=== PATIENT | female | born 1990 | race Caucasian/White ===

== ENCOUNTER 2021-05-29 22:36 | Inpatient (IN) | payer OTHER ==
[~2021-05-29] VITALS: Ht 160 cm; Wt 74.4 kg
[~2021-05-29 22:36] MED LIST: PRENATA CHEWAB1 EACH PO
--- NOTE | 2021-05-30 00:13 | NUR ---
COVID 19 SWAB DONE TO BOTH NARES AND SENT TO INHOUSE LAB.
--- NOTE | 2021-05-30 09:06 | PR ---
[facility] [address] [place], [place] [address] Signed PP Progress Notes Datetime Report Generated by CPN: 05/30/2021 09:06 SUBJECTIVE: [id number] Pain: Within Normal Limits Nausea/Vomiting: Denies Vital Signs: [id number] Vital Signs: Reviewed; Within Normal Limits EXAM: Ongoing Cardiovascular: Normal Respiratory: Normal Abdomen/Uterus: Normal Lochia: Normal Extremities: Normal Progress: Normal Exam Comments: NAD RRR No dyspnea/ retractions Abd SNTND, FFBU Ext: trace edema, Neg Jocelyne's BL IMPRESSION/PLAN/PROCEDURES: [id number] Impression: Normal Progression Plan: Continue Present Management Procedures: None Progress Notes: PPD#1 s/p precipitous -GBS positive, insufficient prophylaxis -Methamphetamine positive on admission UDS Progressing well . Ambulating, voiding, tolerating regular diet. Deneis concerns. Lochia light, pain well-controlled with motrin. Anticipate DC to boarder status tomorrow, baby likely staying x 48h Signing Physician: Janna Singletary DO Copies: ~ *Electronically Signed* 05/30/21 09 JANNA SINGLETARY DO PATIENT NAME: LILIANA JALLOH PROGRESS NOTE DATE OF : 86 PHYSICIAN: JANNA SINGLETARY DO RPT #: [id number] REPORT IS CONFIDENTIAL AND NOT TO BE RELEASED WITHOUT AUTHORIZATION
--- NOTE | 2021-05-31 08:41 | PR ---
[facility] [facility] [address] [place], [place] [address] Signed PP Progress Notes Datetime Report Generated by ASHISH: 05/31/2021 08:41 SUBJECTIVE: [id number] Pain: Within Normal Limits Nausea/Vomiting: Denies Flatus: Yes Vital Signs: [id number] Vital Signs: Reviewed; Within Normal Limits EXAM: Ongoing Cardiovascular: Normal Respiratory: Normal Abdomen/Uterus: Normal Lochia: Normal Breasts: Normal Extremities: Normal Progress: Normal Exam Comments: NAD, standing at bedside RRR No dyspnea/ retractions Abd SNTND, FFBU Ext: trace edema, neg Jocelyne's BL IMPRESSION/PLAN/PROCEDURES: [id number] Impression: Normal Progression Plan: Continue Present Management Procedures: None Progress Notes: PPD#2 s/p precipitous GBS+, insufficient antibiotics, baby under 48hr surveillance UDS+ for methamphetamines on admission, repeat on pt NEGATIVE and baby's urine NEGATIVE. Pt seen and examined, progressing well . VSS, ambulating, voiding, tolerating regular diet. Pain well-controlled, "not bad at all even without the ibuprofen". Planning tubal ligation vs partner vasectomy for contraception Anticipate DC to home later today *Electronically Signed* 05/31/21 0841 JANNA SINGLETARY DO PATIENT NAME: LILIANA JALLOH PROGRESS NOTE DATE OF : 88 PHYSICIAN: JANNA SINGLETARY DO RPT #: [id number] REPORT IS CONFIDENTIAL AND NOT TO BE RELEASED WITHOUT AUTHORIZATION [address] [address] Signed Signing Physician: Janna Singletary DO Copies: ~ *Electronically Signed* 05/31/21 0841 JANNA SINGLETARY DO PATIENT NAME: LILIANA JALLOH PROGRESS NOTE DATE OF : 86 PHYSICIAN: JANNA SINGLETARY DO RPT #: [id number] REPORT IS CONFIDENTIAL AND NOT TO BE RELEASED WITHOUT AUTHORIZATION
== END 2021-05-31 12:49 | disposition home or self-care (01) | DRG 807 ==
LOC: FBC 22:36
PROVIDERS: ADMIT Obstetrics & Gynecology; ATTEND Obstetrics & Gynecology
PROC: 10E0XZZ Delivery of Products of Conception, External Approach (ICD-10-PCS; principal; 2021-05-29)
DX: O99.824 Streptococcus B carrier state complicating childbirth (principal); Z37.0 Single live birth; Z3A.40 40 weeks gestation of pregnancy; Z20.822 Contact with and (suspected) exposure to COVID-19; O99.334 Smoking (tobacco) complicating childbirth; F17.210 Nicotine dependence, cigarettes, uncomplicated; Z88.0 Allergy status to penicillin; Z79.899 Other long term (current) drug therapy
CPT/HCPCS: 36415; 85027; 86850; 86900; 86901; A9270; C9803; J2590; J7121; U0003

== ENCOUNTER 2022-02-05 06:00 | Emergency (ER) | payer OTHER ==
[~2022-02-05] VITALS: Ht 152.4 cm; Wt 74.4 kg
[2022-02-05] MEDS ORDERED: CLEOCIN HCL300 MG PO (06:40)
== END 2022-02-05 07:09 | disposition home or self-care (01) ==
LOC: ED 06:00
DX: J36 Peritonsillar abscess (principal); F17.200 Nicotine dependence, unspecified, uncomplicated; Z88.0 Allergy status to penicillin
CPT/HCPCS: 87880; 99283